=== PATIENT | female | born 1930 | race Caucasian/White ===

== ENCOUNTER 2017-07-14 06:40 | Inpatient (IN) | payer OTHER, MEDICARE ==
[2017-06-17 15:24] VITALS: BMI 31.0
--- NOTE | 2017-06-17 16:06 | PAT Medication Instructions ---
Service Date Jun 17, 2017. 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 Instructions For Your Scheduled Surgery - Hold the following medications the morning of surgery: Lisinopril/Hctz (Zestoretic 20MG/12.5MG), 1 TAB PO QAM - Take the following medications the morning of surgery with a sip of water: Aspirin (Aspirin Ec), 81 MG PO QAM Gabapentin (Neurontin), 300 MG PO BID Tramadol (Ultram), 50 MG PO Q6H PRN (if needed, can be taken up to four hours before surgery) - Take the following medications as scheduled the night before surgery: Gabapentin (Neurontin), 300 MG PO BID Lorazepam (Ativan), 1 MG PO QPM Tramadol (Ultram), 50 MG PO Q6H PRN (if needed) If you have any questions please call us at [phone] or [phone] or [phone]
--- NOTE | 2017-06-17 16:39 | DIAGNOSTIC IMAGING REPORT ---
CHEST 2 VIEWS ROUTINE CLINICAL HISTORY: Preoperative chest COMPARISON STUDY: No previous studies for comparison. FINDINGS: The cardiac and mediastinal contours are normal. There is no evidence of focal pulmonary consolidation. There is no evidence of failure. No pleural effusions are visualized.[ There are minor left basilar atelectatic changes IMPRESSION: No active disease in the chest. Electronically signed by: Durga Guidry M.D. 06/17/2017 4:38 PM Dictated Date/Time: 06/17/2017 4:38 PM
[2017-06-17 16:49] LABS: PTT PATIENT 24.3 SECONDS (21.0-31.0)
[2017-06-18 06:41] LABS: HEMOGLOBIN A1C 6.1 % (4.5-5.6)
--- NOTE | 2017-07-02 14:55 | HISTORY & PHYSICAL EXAMINATION ---
DATE OF ADMISSION: 07/14/2017 CHIEF COMPLAINT: Right knee pain. HISTORY OF PRESENT ILLNESS: This is an 86-year-old female with a multiple year history of right knee pain. The patient rates her pain at 8/10. She has pain with her daily activities. She has limited standing and walking tolerance. Pain is worse with weightbearing. The patient has had injections, home exercise program, anti-inflammatories and tramadol through the years without relief. She has failed conservative treatment and is scheduled for a right knee replacement. PAST MEDICAL HISTORY: Heart disease, diabetes and DVT. PAST SURGICAL HISTORY: Bladder tack, cholecystectomy and hysterectomy. SOCIAL HISTORY: The patient denies alcohol or tobacco use. She lives in a single story home. She lives with her son and granddaughter. She is retired. FAMILY HISTORY: Negative for DVT. MEDICATIONS: Lisinopril 20 mg daily, aspirin 81 mg daily, lorazepam 1 mg 3 times daily, Voltaren gel p.r.n., Prilosec 20 mg p.r.n., and gabapentin 1 capsule t.i.d. ALLERGIES: None. REVIEW OF SYSTEMS: See HPI. Ten other systems reviewed, all negative. PHYSICAL EXAMINATION: VITAL SIGNS: Height 5 feet 6 inches, weight 188 pounds, and BMI 30. GENERAL: This is a well-developed and well-nourished female, who is alert and oriented x3. Mood and affect are appropriate. HEENT: Normocephalic and atraumatic. Mucous membranes are moist and intact. NECK: Supple without lymphadenopathy. HEART: Regular rate and rhythm. She has a grade 1 systolic murmur. LUNGS: Clear to auscultation without wheezes or rhonchi. ABDOMEN: Soft and nontender. Bowel sounds are equal and active. EXTREMITIES: No ecchymosis, redness or warmth. She has valgus deformity. Range of motion is from 3-95 degrees with no laxity. She has moderate effusion. She has no edema. She is neurovascularly intact with +5/5 strength. X-RAY EXAMINATION: AP and lateral views show joint space narrowing and osteophyte formation. IMPRESSION: Degenerative joint disease, right knee. PLAN: The patient will be admitted for a right total knee arthroplasty. We will plan on aspirin 325 mg for DVT prophylaxis. The patient is going to do [facility] for home physical therapy. PCP is Dr. Zamora in [place].
[2017-07-14] VITALS (7 sets, daily range): BP systolic 87–140; BP diastolic 50–75; PULSE 58–76; TEMP 36.3–36.8; O2SAT 92–98; Ht 165.1 cm; Wt 85.8 kg
[~2017-07-14] VITALS: Ht 165.1 cm; Wt 85.8 kg
[~2017-07-14 06:40] MED LIST: ACETAMINOPHEN 500 MG TAB PO SCH; ASPI81TA28 PO; ATROPINE SULFATE 0.1 MG/ML 5ML SYR IV PRN; ATV/1 PO; BUPIVACAINE 0.25% 30 ML VIAL ONE; BUPIVACAINE 0.5 % 5 MG/1 ML PF 10ML VIAL ONE; CEFAZOLIN 2000MG IV PUSH 15 ML IV SCH; CeleBREX 200 MG CAP PO SCH; DEXAMETHASONE 4 MG TAB PO SCH; EpHEDrine SULFATE INJ 50 MG/ML AMP IV PRN; FAMOTIDINE 20 MG TAB PO SCH; FENTANYL CITRATE INJ 50 MCG/1 ML 2 ML VIAL IV PRN; GABA-113 PO; GABAPENTIN 300 MG CAP PO SCH; HYDROmorphone INJ 1 MG/ML SYR IV PRN; LACTATED RINGER'S 1000ML 1,000 ML IV SCH; LACTATED RINGER'S 1000ML 500 ML IV SCH; LISI-787 PO; METOCLOPRAMIDE HCL 10 MG TAB PO SCH; ONDANSETRON INJ 2 MG/ML 2 ML VIAL IV PRN; PHENYLEPHRINE 100MCG/ML 5ML SYR IV PRN; ROPIVACAINE 5MG/ML 30 ML 150 MG, BUPIVACAINE 0.5% MPF INJ 30 ML, EpINEphrine HCL INJ 0.... INFIL SCH; TRAM-10 PO
[2017-07-14] MEDS ORDERED: MIDAZOLAM HCL 1 MG/ML 2ML VIAL ONE (07:12)
--- NOTE | 2017-07-14 07:12 | History & Physical Bridge Note ---
H&P Re-Evaluation Bridge Note: I have examined the patient, reviewed the History & Physical and in the interval since the performance of the History & Physical I have noted the following changes of clinical significance: No changes noted
[2017-07-14] MEDS ORDERED: BACITRACIN 50000 UNIT VIAL ONE (07:33)
[2017-07-14] MEDS ORDERED: POVIDONE-IODINE OP SOLN 30 ML BTL ONE (07:33)
[2017-07-14] MEDS ORDERED: ORTHO JOINT ANESTHETIC ONE (07:33)
[2017-07-14] MEDS ORDERED: FENTANYL CITRATE INJ 50 MCG/1 ML 2 ML VIAL ONE (08:12)
[2017-07-14] MEDS ORDERED: LIDOCAINE HCL 2% 2 ML VIAL (20MG/ML) ONE (08:12)
[2017-07-14] MEDS ORDERED: PROPOFOL IV EMULSION 10 MG/ML 20 ML VIAL IV ONE (08:12)
[2017-07-14] MEDS ORDERED: DEXAMETHASONE SOD INJ 4 MG/ML VIAL ONE (08:12)
[2017-07-14] MEDS ORDERED: ONDANSETRON INJ 2 MG/ML 2 ML VIAL ONE (08:12)
[2017-07-14] MEDS: TRANEXAMIC ACID INJ 1,000 MG x 2 Bags IV SCH ×4 (08:15→12:42)
[2017-07-14] MEDS ORDERED: ETOMIDATE 2 MG/ML 20 ML VIAL IV ONE (09:14)
[2017-07-14] MEDS ORDERED: ROCURONIUM BROMIDE 10 MG/ML 5 ML VIAL IV ONE (09:14)
[2017-07-14] MEDS ORDERED: LARYING-O-JET KIT (LTA) ONE (09:15)
[2017-07-14] MEDS ORDERED: PHENYLEPHRINE 100MCG/ML 5ML SYR ONE (09:15)
[2017-07-14] MEDS ORDERED: GLYCOPYRROLATE INJ 0.2 MG/ML VIAL ONE (09:15)
[2017-07-14] MEDS ORDERED: NEOSTIGMINE METHYLSULFATE 5 MG/5 ML SYR ONE (09:15)
--- NOTE | 2017-07-14 10:43 | [facility] Post Operative Brief Note ---
Immediate Operative Summary Operative Date Jul 14, 2017. Pre-Operative Diagnosis Right knee djd Post-Operative Diagnosis Right knee DJD Procedure(s) Performed Right TKA Surgeon Dr. Smith Applied Exercise Physiologist Surgeon(s) Manny Garcia PA-C Estimated Blood Loss 25 Findings Consistent with Post-Op Diagnosis Fluids (cc crystalloids) 1200 Specimens none Drains None Anesthesia Type MAC Spinal Regional Complication(s) none Disposition Disposition: Recovery Room / PACU
[2017-07-14] MEDS ORDERED: MoRPHine SULFATE 4 MG/ML 1 ML CARP\\VIAL IV PRN (11:00)
[2017-07-14] MEDS ORDERED: ONDANSETRON INJ 2 MG/ML 2 ML VIAL IV PRN (11:00)
--- NOTE | 2017-07-14 11:56 | Anesthesiology Progress Note ---
Anesthesia Post Op Note Date & Time Jul 14, 2017 at 11:56 Vital Signs Pain Intensity: 3 Vital Signs Past 12 Hours Date Time Temp Pulse Resp B/P (MAP) Pulse Ox O2 Delivery O2 Flow Rate FiO2 07/14/17 11:45 66 16 116/61 97 Room Air 07/14/17 11:35 89 14 131/68 99 Oxymask 10 07/14/17 11:25 74 14 136/64 99 Oxymask 10 07/14/17 11:18 36.1 89 14 134/73 97 Oxymask 10 07/14/17 07:10 76 20 140/71 95 Room Air Notes Mental Status: alert / awake / arousable, participated in evaluation Pt Amnestic to Procedure: Yes Nausea / Vomiting: adequately controlled Pain: adequately controlled Airway Patency, RR, SpO2: stable & adequate BP & HR: stable & adequate Hydration State: stable & adequate Anesthetic Complications: no major complications apparent
--- NOTE | 2017-07-14 11:58 | DIAGNOSTIC IMAGING REPORT ---
R KNEE 1 OR 2 VIEWS ROUTINE CLINICAL HISTORY: 86 years-old Female presenting with AP/LATERAL IN PACU RIGHT KNEE. TECHNIQUE: Frontal and lateral views of the right knee were obtained. COMPARISON: None. FINDINGS: Postsurgical changes of total right knee arthroplasty with patellar resurfacing. Minimal lucency at the distal stem of the tibial plateau component, which measures less than 2 mm. No other periprosthetic lucency. No periprosthetic fracture. No malalignment. Expected intra-articular and subcutaneous emphysema. IMPRESSION: Expected postsurgical changes status post total right knee arthroplasty with patellar resurfacing. Lucency at the stem of the tibial component is likely within the range of acceptable. Electronically signed by: Joseph Bo M.D. 07/14/2017 11:57 AM Dictated Date/Time: 07/14/2017 11:55 AM
[2017-07-14] MEDS ORDERED: OXYCODONE HCL IR 5 MG TAB (IMMEDIATE RELEASE) ONE (12:22)
[2017-07-14] MEDS: SODIUM CHLORIDE 0.9% 1000ML 1,000 ML IV SCH ×2 (12:42→22:22)
[2017-07-14] MEDS: GABAPENTIN 300 MG CAP PO SCH ×2 (13:00→20:39)
[2017-07-14] MEDS: LISINOPRIL/HCTZ 20/12.5MG TAB PO SCH (13:00)
[2017-07-14] MEDS: KETOROLAC TROMETHAMINE 15 MG/ML VIAL IV. SCH ×2 (13:13→19:57)
[2017-07-14] MEDS: ACETAMINOPHEN 500 MG TAB PO SCH ×2 (15:27→22:23)
--- NOTE | 2017-07-14 15:51 | [facility] Operative Report ---
Operative Report Operative Date Jul 14, 2017. Pre-Operative Diagnosis Right knee djd Post-Operative Diagnosis Right knee DJD Procedure(s) Performed Right TKA Surgeon Dr. Smith Tack Puller Machine Surgeon(s) Manny Garcia PA-C Estimated Blood Loss 25 Findings See dictated op note Fluids 1200 Specimens none Drains None Anesthesia Type MAC Spinal Regional Complication(s) none Disposition Recovery Room / PACU Indications A 86-year-old male presents with long history of right knee severe tricompartmental DJD which is failed outpatient conservative treatments including NSAIDs, bracing, cortisone injections home walking/exercise program. His symptoms have progressed to the point where it has been difficult for him to perform normal activities of daily living. I have indicated the patient for a right total knee arthroplasty, the risks and benefits and complications of the procedure include but are not limited to infection bleeding damage to bone nerves vessels surrounding soft tissue, blood clots loss of function leg length discrepancy dislocation failure of the components need for additional surgery and . The patient wished to proceed with surgery at this time and informed consent was obtained. Appropriate clearances were obtained. Description of Procedure Following induction of spinal anesthesia, a tourniquet was applied to the proximal aspect of the thigh and the patient's right leg was prepped and draped in the usual sterile manner. A timeout was performed and site asia verified. Limb was exsanguinated with an esmarch bandage and tourniquet was inflated to 300 mmHg. A longitudinal midline incision was made over the anterior knee. Subcutaneous tissue was sharply dissected down to fascia. Electrocautery was used for hemostasis. Next a parapatellar arthrotomy was performed. Patella was everted and the knee was flexed. A randall retractor was used to expose the synovium above on the anterior aspect of the femur and removed down to bone. Next, the anterior fat pad was removed to aid in visualization. The medial face of the tibia was cleared of soft tissue first with a bovie and a beebe elevator. This tissue was retracted posteriorly using a blunt hohmann. Next the extramedullary tibial cutting guide was placed to the anterior aspect of the tibia. The tibial resection level was set taking 2mm from the defective tibial condyle. The medial and lateral collateral ligament were protected with that homans. The tibia guide was removed and proximal tibial bone fragment removed utilizing straight osteotome, electrocautery and lenora. Next, the distal femur intramedullary canal was accessed utilizing the step drill. The intramedullary distal femur cutting guide was placed into the canal and pinned into place. The distal femur was cut on the 5 setting. Next the cutting guide was removed and the femur was sized. Care was taken to ensure appropriate store standards associate all rotation and 5 degree holes were drilled. A size 8 4-in- 1 cutting block was placed on the distal end of the femur and secured into place with two short headed screws. Two bent homans were placed to protect the medial and lateral collateral ligaments. The oscillating saw was used to cut anterior, posterior, anterior chamfer and posterior chamfer. The four and one cutting block was removed and bone fragments excised. Laminar industrial machine system technician was placed laterally and the ACL and PCL were removed followed by the medial meniscus and posterior medial osteophytes. Aquamantys was utilized for any posterior medial bleeders and Orthomix injected into the posterior medial capsule. A laminar industrial machine system technician was then placed in the medial compartment and the lateral meniscus and posterior osteophytes were removed. Aquamantys was utilized for any posterior lateral bleeders and Orthomix injected into the posterior lateral capsule. Next, drop jillian and spacer block were placed with the leg in flexion and extension to assess alignment and flexion/extension gaps. Next the proximal tibia was assessed and two bent Homans were placed medial and lateral to aid in visualization. The appropriate tibia size and rotation was selected and a size E tibial plate was pinned into place with appropriate rotation. Preparation of the tibia was completed utilizing the matching tibial drill and broach. I then turned my attention back to the distal femur in a trial femoral component was impacted into place. Appropriate femoral width was assessed and selected. Next the femur PS box cut guide was placed and cut made with the reciprocal saw and the PS box provisional placed. A trial size 12 tibia articular tray was placed and varus-valgus balance assessed in 0 degrees of extension and 30, 60 and 90 degrees of flexion. A final tibial articular surface size 12 was chosen. Assess was gained to the patella and caliper utilized to measure width. The patella reamer was utilized and remaining bone removed with oscillating saw. A size 32 patella button was selected and the patella pegs drilled. Trial patella button was placed and tracking was assessed. The knee was found to be well balanced, well aligned with excellent patella tracking. The trials were removed and final components were obtained and assembled. The knee was irrigated copiously with sterile saline solution mixed with bacitracin. Access to the proximal tibia was once again obtained utilizing to the homans and the proximal tibia and distal femur were dried with lap sponges. The final components were cemented into place and all excess cement was removed. A trial tibial articular surface was placed while cemented hardened. Knee stability was once again assessed and the final component inserted. The knee was injected with the remaining Orthomix solution and irrigated once more with sterile saline solution mixed with bacitracin. The capsulotomy was closed with #1 Vicryl followed by subcutaneous closure with 2-0 Vicryl suture and a 3- 0 V-lock suture. Skin closure was performed using Prineo dressing followed by Juan, 4 x 4s and lisa wrap. The patient tolerated the procedure well and was taken to the PACU in stable condition. Due to the complex nature of the procedure, the entire surgery was performed with the operational assistance of Manny Portillo PA-C. The behavioral health assistant, under direct supervision, was involved in the actual performance of all aspects of the surgical procedure including hemostasis, tissue retraction and incision, instrument management, patient positioning, and wound closure. I attest to the content of the Intraoperative Record and any orders documented therein. Any exceptions are noted below. I attest to the content of the Intraoperative Record and any orders documented therein. Any exceptions are noted below.
[2017-07-14] MEDS: CEFAZOLIN IV 2,000 MG in SYRINGE 0 ML IV SCH (17:48)
--- NOTE | 2017-07-14 18:56 | Orthopedic Progress Note ---
Orthopedic Progress Note Date of Service Jul 14, 2017. Subjective Additional Notes: Post-operative progress note Patient seen laying in bed, comfortable, pain well controlled, no acute issues. Objective NAD, AOx3 PE RLE: NVSI +EHL/FHL/TA/GS SILT grossly, CR< 2 seconds, + 2 DP pulse, compartment soft NT, dressing CDI Date Time Temp Pulse Resp B/P (MAP) Pulse Ox O2 Delivery O2 Flow Rate FiO2 07/14/17 15:16 36.3 58 16 99/60 (73) 95 Nasal Cannula 2.0 07/14/17 14:15 36.4 60 15 97/55 (69) 96 2.0 96/55 (69) 07/14/17 12:39 64 16 127/63 (84) 98 Nasal Cannula 2.0 07/14/17 12:15 36.8 69 18 125/75 (92) 92 Nasal Cannula 2.0 07/14/17 12:15 92 Nasal Cannula 2.0 07/14/17 12:15 92 Nasal Cannula 2.0 07/14/17 11:55 36.4 66 18 124/64 95 Nasal Cannula 2 07/14/17 11:45 66 16 116/61 97 Room Air 07/14/17 11:35 89 14 131/68 99 Oxymask 10 07/14/17 11:25 74 14 136/64 99 Oxymask 10 07/14/17 11:18 36.1 89 14 134/73 97 Oxymask 10 07/14/17 07:10 76 20 140/71 95 Room Air Assessment & Plan Assessment: s/p R TKA Plan: -ancef x 24 -DVT ppx: ASA BID -Pain controlled -WBAT RLE -PT/OT -AM labs -PO XR: well aligned well fixed total knee prosthesis without fracture or dislocation. -DC planning, home with HH
[2017-07-14] MEDS: LORAZEPAM 1 MG TAB PO SCH (20:39)
[2017-07-14] MEDS: ASPIRIN 325 MG ECTAB PO SCH (20:39)
[2017-07-14] MEDS: OXYCODONE HCL 10 MG TABCR (OXYCONTIN) PO SCH (20:39)
[2017-07-14] MEDS: DOCUSATE SODIUM 100 MG CAP PO SCH (20:39)
[2017-07-14] MEDS: SENNA 8.6 MG TAB PO SCH (20:39)
[2017-07-15] VITALS (10 sets, daily range): BP systolic 90–112; BP diastolic 50–68; PULSE 58–63; TEMP 36.4–36.7; O2SAT 93–98
[2017-07-15] MEDS: KETOROLAC TROMETHAMINE 15 MG/ML VIAL IV. SCH ×2 (00:10→05:44)
[2017-07-15] MEDS: CEFAZOLIN IV 2,000 MG in SYRINGE 0 ML IV SCH (00:11)
[2017-07-15] MEDS: ACETAMINOPHEN 500 MG TAB PO SCH ×3 (05:41→22:28)
[2017-07-15 07:41] LABS: CALCIUM 7.8 mg/dl (8.5-10.1); CREATININE 1.12 mg/dl (0.60-1.20); POTASSIUM 4.4 mmol/L (3.5-5.1)
--- NOTE | 2017-07-15 07:44 | Discharge Instructions ---
Discharge Instructions Date of Service Jul 15, 2017. Admission Reason for Admission: Right Knee Osteoarthritis Discharge Discharge Diagnosis / Problem: SP RIGHT TKA Discharge Goals Goal(s): Decrease discomfort, Improve function, Increase independence Activity Recommendations Activity Limitations: per Instructions/Follow-up section . Instructions / Follow-Up Instructions / Follow-Up ACTIVITY RECOMMENDATIONS: SELF CARE INSTRUCTIONS AFTER TOTAL KNEE REPLACEMENT A. You may need to continue a physical therapy program after discharge from the hospital. There are several options available to you. Your doctor will assist you in selecting the best one for you. 1. An out-patient facility 2 to 3 times a week for therapy or home therapy. 2. Continue working on all exercises taught to you in the hospital. Your goals should be to increase bending of your knee to 90 degrees and beyond and to fully straighten your knee. B. You may progress at your own pace from walking with a walker or crutches to a cane; then to no assistive devices. C. Make walking a part of your daily routine. Be up as much as comfortable with rest periods throughout the day. Rest with leg elevation is very important. Use the ice wrap frequently for the first 3-4 weeks. D. There are no restrictions on activities. You may ride in a car, shop, participate in brazing machine tender and all social activities. E. Wear the long elastic stockings (KALEB hose) 20 hours a day for 2 weeks after surgery. They can be removed several times a day for laundering and for a bath. F. You may shower, no tub baths until cleared by your doctor. SPECIAL CARE INSTRUCTIONS: VERY IMPORTANT TO READ AND REVIEW A. There are a few signs you need to watch for after you are home. Call [facility] [place] if you notice any of the followin. Increased severe knee pain. Some pain is expected especially when you exercise. 2. Increased swelling in your leg or knee; pain or swelling of the calf muscle in either lower leg. 3. Any fluid drainage from the incision. 4. Shortness of breath or chest pain. B. Please call [facility] at if you have any concerns or questions about your operation or recovery. The doctor or his nurse will return your call promptly. C. You must take antibiotics before dental work, bladder, bowel or other surgery. Your doctor will provide you with a permanent care to carry describing this precaution. IMPORTANT: * REMEMBER TO TAKE ASPIRIN, 325 MG, TWICE DAILY FOR 4 WEEKS UNLESS OTHERWISE DIRECTED. THIS IS YOUR BLOOD THINNER. * HIGH RISK PATIENTS MAY BE PRESCRIBED A STRONGER BLOOD THINNER. THIS WILL BE PROVIDED AT DISCHARGE. * CALL IF INCREASED PAIN, REDNESS, DRAINAGE OR FEVER GREATER THAT 101. * WEAR KALEB HOSE 20 HOURS PER DAY FOR 2 WEEKS. * DERMABOND Prineo- This is a mesh tape dressing that is covered with glue. It should remain in place until the incision is properly healed, usually 10-14 days. This dressing is designed to naturally slough off. You may trim the excess mesh tape as it peels off. Incision may be briefly wet in a shower. Dry immediately by blotting with a clean, dry towel. Do not bath or swim until instructed by your doctor. Do not scratch, rub, or pick at the dressing. Do not apply any topical ointments or lotions until dressing is completely removed and/or instructed by your doctor. There may be a small piece of suture material at one end of your incision. Do not pull or trim this. If it is bothersome or catching on clothing, you may cover it with a band-aid. FOLLOW UP VISIT: If appointment is not already scheduled: Please call [facility] to make a follow-up appointment for 2 weeks after your surgery at . Current Hospital Diet Patient's current hospital diet: Regular Diet Discharge Diet Recommended Diet: Regular Diet Procedures Procedures Performed: Right TKA Pending Studies Studies pending at discharge: no Laboratory Results Hemoglobin A1c Test 06/17/17 16:18 Range/Units Estimated Average Glucose 128 mg/dl Hemoglobin A1c 6.1 H 4.5-5.6 % Medical Emergencies . Who to Call and When: Medical Emergencies: If at any time you feel your situation is an emergency, please call 911 immediately. . Non-Emergent Contact Non-Emergency issues call your: Surgeon . "Provider Documentation" section prepared by Alida Condon. . [place] Drug Monitoring Program Search Results: patient reviewed within database, no issues identified
[2017-07-15 08:31] LABS: HEMATOCRIT 35.4 % (37-47); HEMOGLOBIN 11.5 g/dL (12.0-16.0); MEAN CELL VOLUME 84.9 fL (80-100); MEAN CORPUSCULAR HEMOGLOBIN 27.6 pg (25-34); MEAN CORPUSCULAR HGB CONC 32.5 g/dl (32-36); MEAN PLATELET VOLUME 12.1 fL (7.4-10.4); PLATELET COUNT 162 K/uL (130-400); RED CELL DISTRIBUTION WIDTH CV 13.3 % (11.5-14.5)
[2017-07-15] MEDS: SODIUM CHLORIDE 0.9% 1000ML 1,000 ML IV SCH (08:45)
[2017-07-15] MEDS: ASPIRIN 325 MG ECTAB PO SCH ×2 (09:04→21:00)
[2017-07-15] MEDS: MULTIVITAMIN TAB PO SCH (09:04)
[2017-07-15] MEDS: DOCUSATE SODIUM 100 MG CAP PO SCH ×2 (09:04→21:00)
[2017-07-15] MEDS: LISINOPRIL/HCTZ 20/12.5MG TAB PO SCH (09:04)
[2017-07-15] MEDS: OXYCODONE HCL IR 5 MG TAB (IMMEDIATE RELEASE) PO PRN ×3 (09:17→20:55)
[2017-07-15] MEDS: OXYCODONE HCL 10 MG TABCR (OXYCONTIN) PO SCH (09:17)
--- NOTE | 2017-07-15 10:14 | Orthopedic Progress Note ---
Orthopedic Progress Note Date of Service Jul 15, 2017. Subjective Additional Notes: Patient seen at bedside, comfortable, pain well controlled, c/o decreased sensation to the planter aspect of her right foot. No acute issues overnight. Objective NAD, AOx3 PE RLE: NVSI +EHL/FHL/TA/GS, decreased sensation to planter foot, 5/5 motor strength, CR< 2 seconds, + 2 DP pulse, compartment soft NT, dressing CDI Date Time Temp Pulse Resp B/P (MAP) Pulse Ox O2 Delivery O2 Flow Rate FiO2 07/15/17 09:13 105/65 (78) 07/15/17 08:48 93 Room Air 07/15/17 08:00 36.4 59 20 90/50 (63) 93 Room Air 07/15/17 07:25 Room Air 07/15/17 02:42 36.4 58 16 96/55 (69) 96 Room Air 07/15/17 00:30 99/59 (72) 07/15/17 00:00 Room Air 07/14/17 22:59 36.7 62 15 87/50 (62) 93 Room Air 07/14/17 18:57 36.5 59 17 92/57 (69) 98 Room Air 07/14/17 15:16 36.3 58 16 99/60 (73) 95 Nasal Cannula 2.0 07/14/17 14:15 36.4 60 15 97/55 (69) 96 2.0 96/55 (69) 07/14/17 12:39 64 16 127/63 (84) 98 Nasal Cannula 2.0 07/14/17 12:15 36.8 69 18 125/75 (92) 92 Nasal Cannula 2.0 07/14/17 12:15 92 Nasal Cannula 2.0 07/14/17 12:15 92 Nasal Cannula 2.0 07/14/17 11:55 36.4 66 18 124/64 95 Nasal Cannula 2 07/14/17 11:45 66 16 116/61 97 Room Air 07/14/17 11:35 89 14 131/68 99 Oxymask 10 07/14/17 11:25 74 14 136/64 99 Oxymask 10 07/14/17 11:18 36.1 89 14 134/73 97 Oxymask 10 Laboratory Results 24 Hours: Test 07/15/17 06:18 07/15/17 08:19 Prothromb Time International Ratio 1.0 Prothrombin Time 10.1 SECONDS Hematocrit 35.4 % Hemoglobin 11.5 g/dL Assessment & Plan Assessment: s/p R TKA POD#1 Plan: -ancef x 24 -DVT ppx: ASA BID -Pain controlled -WBAT RLE -PT/OT -AM labs -PO XR: well aligned well fixed total knee prosthesis without fracture or dislocation. -DC planning, home with HH
[2017-07-15] MEDS: PANTOprazole SOD 40 MG TAB PO SCH (10:18)
[2017-07-15] MEDS: GABAPENTIN 300 MG CAP PO SCH ×2 (10:18→21:00)
[2017-07-15] MEDS: CeleBREX 200 MG CAP PO SCH (21:00)
[2017-07-15] MEDS: SENNA 8.6 MG TAB PO SCH (21:00)
[2017-07-15] MEDS: LORAZEPAM 1 MG TAB PO SCH (21:00)
[2017-07-16] MEDS: OXYCODONE HCL IR 5 MG TAB (IMMEDIATE RELEASE) PO PRN ×4 (01:24→14:23)
[2017-07-16] MEDS: ACETAMINOPHEN 500 MG TAB PO SCH ×2 (05:41→11:31)
[2017-07-16 07:39] VITALS: BP 113/70; PULSE 68; TEMP 36.5; O2SAT 94
--- NOTE | 2017-07-16 07:39 | Orthopedic Progress Note ---
Orthopedic Progress Note Date of Service Jul 16, 2017. Subjective Post OP Day: 2 Reports: complaints (HAD A ROUGH NIGHT WITH PAIN CONTROL. FEELING SLIGHTLY BETTER NOW.), Denies: chest pain, SOB, nausea / vomiting, light headedness, calf pain Objective calves soft nontender, N/V intact, capillary refill less than 2 sec., incision C /D/I, A&O x3, toes mobile Date Time Temp Pulse Resp B/P (MAP) Pulse Ox O2 Delivery O2 Flow Rate FiO2 07/15/17 23:29 36.7 63 16 104/64 (77) 93 Room Air 07/15/17 23:25 Room Air 07/15/17 15:40 97 Room Air 07/15/17 15:05 36.6 62 16 95/57 (70) 97 Room Air 07/15/17 11:57 36.7 58 14 112/68 (83) 96 Room Air 07/15/17 11:05 58 98 07/15/17 09:13 105/65 (78) 07/15/17 08:48 93 Room Air 07/15/17 08:00 36.4 59 20 90/50 (63) 93 Room Air Laboratory Results 24 Hours: Test 07/15/17 08:19 Hematocrit 35.4 % Hemoglobin 11.5 g/dL Assessment & Plan Assessment: s/p R TKA POD#2 Plan: -ancef x 24 -DVT ppx: ASA BID -Pain IS MOSTLY THIGH, LIKELY TOURNIQUET. WILL GIVE A ONE TIME DOSE OF TORADOL THIS AM. DC HOME IF PAIN CONTROLLED LATER. -WBAT RLE -PT/OT -AM labs -PO XR: well aligned well fixed total knee prosthesis without fracture or dislocation. -DC planning, home with HH.
[2017-07-16] MEDS ORDERED: ACET-24 PO (07:41)
[2017-07-16] MEDS ORDERED: ASPEC325 PO (07:41)
[2017-07-16] MEDS ORDERED: ONDA-170 PO (07:41)
[2017-07-16] MEDS ORDERED: RXC5 PO (07:41)
[2017-07-16] MEDS ORDERED: SENN-61 PO (07:41)
[2017-07-16] MEDS ORDERED: CLB200 PO (07:41)
[2017-07-16] MEDS ORDERED: KETOROLAC TROMETHAMINE 15 MG/ML VIAL IV. STA (08:23)
[2017-07-16] MEDS: GABAPENTIN 300 MG CAP PO SCH (08:29)
[2017-07-16] MEDS: ASPIRIN 325 MG ECTAB PO SCH (08:29)
[2017-07-16] MEDS: PANTOprazole SOD 40 MG TAB PO SCH (08:29)
[2017-07-16] MEDS: MULTIVITAMIN TAB PO SCH (08:29)
[2017-07-16] MEDS: CeleBREX 200 MG CAP PO SCH (08:30)
[2017-07-16] MEDS: LISINOPRIL/HCTZ 20/12.5MG TAB PO SCH (08:30)
[2017-07-16] MEDS: DOCUSATE SODIUM 100 MG CAP PO SCH (08:30)
[2017-07-16] MEDS ORDERED: OXYC-57 PO (11:08)
[2017-07-16 11:34] VITALS: BP 113/70; PULSE 68; TEMP 36.5; O2SAT 94
--- NOTE | 2017-07-16 15:25 | Anesthesiology Progress Note ---
Anesthesia Post Op Note Date & Time Jul 16, 2017 at 15:24 Vital Signs Pain Intensity: 5.0 Vital Signs Past 12 Hours Date Time Temp Pulse Resp B/P (MAP) Pulse Ox O2 Delivery O2 Flow Rate FiO2 07/16/17 11:34 36.5 68 16 94 Room Air 07/16/17 07:39 36.5 68 16 113/70 (84) 94 Room Air 07/16/17 07:10 Room Air Notes Mental Status: alert / awake / arousable, participated in evaluation Pt Amnestic to Procedure: Yes Nausea / Vomiting: adequately controlled Pain: adequately controlled Airway Patency, RR, SpO2: stable & adequate BP & HR: stable & adequate Hydration State: stable & adequate Anesthetic Complications: no major complications apparent This post-op visit was made on July 15, 2017 @ 07:30 AM
--- NOTE | 2017-07-19 18:56 | DISCHARGE SUMMARY ---
DISCHARGE DIAGNOSIS: Degenerative joint disease, right knee. SECONDARY DIAGNOSES: History of coronary artery disease, diabetes mellitus, and deep vein thrombosis in the past. CONSULTS: None. COMPLICATIONS: None. PROCEDURES: Right total knee arthroplasty performed by Dr. Smith on 07/14/2017. BRIEF HISTORY: As dictated in the history and physical. HOSPITAL SUMMARY: The patient was admitted on the above date and had the above known surgery performed, which she tolerated well. On the first postoperative day, she was seen at the bedside and was comfortable. Pain was controlled. She had some decreased sensation to the plantar aspect of her right foot. She had no other acute issues. She was in no acute distress, alert and oriented x3. She had some slight decreased sensation on the plantar portion of the foot. Motor strength was 5/5. Capillary refill is less than 2 seconds. Has +2 dorsalis pedis pulse. Calves are soft and nontender. Dressings are clean, dry, and intact. Vital signs are stable and she is afebrile. Hemoglobin is 11.5 and she was started on physical therapy protocol and continued on DVT prophylaxis and pain management. By her second postoperative day, she had had a rough night with pain control, but was feeling slightly better that morning. She had no other complaints. Calves were soft and nontender. Neurovascularly intact. Incision was clean, dry, and intact. Toes were mobile. Hemoglobin was 11.5. Vital signs are stable. She is afebrile. Her pain was mostly in the thigh and was likely due to tourniquet and plans were to give one time dose of Toradol that morning. She was continued on her PT protocol and continued on DVT prophylaxis and pain management. She was progressing well with her physical therapy. Pain control was apparently better and she was discharged to home on 07/16/2017. For further review, please see chart. LAB AND X-RAY DATA: As per chart. DISCHARGE INSTRUCTIONS: The patient was discharged to home in satisfactory condition on 07/16/2017 in stable condition. DIET: Regular. ACTIVITY: Follow TK instruction sheets and special care instructions as noted. Follow up with Dr. Smith in 2 weeks. The patient to call for appointment if one has not been made for you. DISCHARGE MEDICATIONS: Aspirin 325 mg p.o. b.i.d. for 30 days, Celebrex 200 mg p.o. b.i.d., Zofran 8 mg p.o. q. 8 hours p.r.n. nausea, Percocet 5/325 one to two tablets p.o. q. 4 hours p.r.n., senna 17.2 mg p.o. at bedtime. Resume home meds as listed and stop taking your initial dose of aspirin that was taken once daily. After 30 days, resume your once daily dosing.
== END 2017-07-16 14:54 | disposition home health service (06) | DRG 470 ==
LOC: C.ACU 06:40 → C.3E 07:05 → ENRESERV 11:42
PROVIDERS: ADMIT Orthopaedic Surgery; ATTEND Orthopaedic Surgery
PROC: 0SRC0J9 Replacement of Right Knee Joint with Synthetic Substitute, Cemented, Open Approach (ICD-10-PCS; principal; 2017-07-14 08:45)
DX: M17.11 Unilateral primary osteoarthritis, right knee (principal); I25.10 Atherosclerotic heart disease of native coronary artery without angina pectoris; E11.9 Type 2 diabetes mellitus without complications; Z86.718 Personal history of other venous thrombosis and embolism

== ENCOUNTER 2020-01-10 07:06 | Observation (INO) ==
--- NOTE | 2020-01-02 10:13 | Anesthesiology Consultation ---
Date of Service January 02, 2020 Assessment & Plan (1) Encounter for pre-operative examination: Chart Review Chart Review: Acceptable Risk for Surgery (pending preop Covid testing ) and Patient NOT seen in Pre Admission Testing Per nursing assessment 12/13/2019, patient resides in [facility]. Wears mask, uses good hand hygiene and socially distances. No known Covid positive contacts or Covid related symptoms. Pt will be following up with surgeon for preop Covid instructions. Seen by PCP 12/27/2019 = patient seen for preop evaluation. Patient had appointment with cardio previously and was cleared through them for the surgery. Labs okay. Urine had normal jose showing and patient is asymptomatic. No further cardiopulmonary testing needed. "Patient is cleared for surgery." Seen by cardio 12/27/2019 = patient seen for preop cardiac clearance. She is a well-preserved octogenarian and has good functional status despite severe left knee arthritis. Patient does have moderate to severe aortic stenosis but is asymptomatic; this is not a contraindication to surgery. " We should proceed with her surgery, excepting the cardiovascular risk involved; particular care needed to be taken to prevent significant hypotension, perioperatively... An ischemic evaluation is not merited." Follow-up in 6 months. Right TKA 07/14/17= Done under GA- grade 2 view with MAC #3. 1 attempt/atraumatic. Pt tolerated PNB well. No SAB due to . History Surgery Operation Date: 01/10/20 11:15 Proposed Procedures p Left Total Knee Arthroplasty - Jh Smith DO Height/Weight Height: 5 ft 4 in Weight: 83.915 kg Allergies Allergy/AdvReac Type Severity Reaction Status Date / Time No Known Allergies Allergy Verified 12/13/19 09:53 Medications Home Medications Medication Instructions Recorded Confirmed Last Taken lisinopril-hydrochlorothiazide 1 tab PO QAM 10/10/19 12/13/19 Unknown lorazepam 1 mg PO QPM 10/10/19 12/13/19 Unknown meloxicam 7.5 mg PO BID PRN 10/10/19 12/13/19 Unknown Medical Marijuana 1 dose SUBLINGUAL UD PRN 10/20/19 12/13/19 Unknown Cbd Oil 1 dose TOPICAL DAILY 12/13/19 12/13/19 Unknown gabapentin 400 mg PO QID 12/13/19 12/13/19 Unknown multivitamin 1 tab PO QAM 12/13/19 12/13/19 Unknown Past Medical History Medical History (Updated 01/02/20 @ 10:07 by Gay Amador PA-C) Aortic stenosis Moderate to severe per October 2019 ECHO 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 Hypertension Irregular heart beat F/U DR RIDLEY THONY (obstructive sleep apnea) Mild- no device needed per patient Past Surgical History Surgical History History of cholecystectomy History of colonoscopy History of hysterectomy AND ONE OVARY History of total knee replacement RIGHT Status post surgical removal and fulguration of bladder neoplasm 2008-AND CHEMOTHERAPY Social History Smoking Status: Former smoker Do You Dip or Chew Tobacco: No Smoking End Date: QUIT 35 YRS AGO Hx Alcohol Use: No Alcohol type: beer, wine and hard liquor alcohol intake frequency: a few times a month Hx Substance Use: Yes (SEE BELOW) substance use type: marijuana and other Substance Use Type Other:: MEDICAL MARIJUANA CARD-SUBLINGUAL PRN/CBD OIL T OPICALLY Testing Laboratory Results 12/15/19= WBC: 6.48 H/H: 13.0/41.6 PLATELETS: 173 SODIUM: 137 POTASSIUM: 4.9 CHLORIDE: 104 CO2: 29.1 BUN: 30.7 CREATININE: 1.08 GLUCOSE: 81 HGB A1C: 6.0 PT: 11.2 PTT: 32.0 INR: 0.97 UA: Large leukocyte esterase URINE CULTURE: Mixed jose (multiple species present) Electrocardiogram Date: 12/27/19 Sinus rhythm with a solitary PAC at 91 bpm. Chest X-Ray Date: 10/19/19 Findings: + NAD Echocardiogram EF: 55% LV Function: normal Heavily calcified aortic valve with moderate to severe stenosis (VLADIMIR =0.9 cm; MG 33 mmHg; peak velocity 3.3 m/s). Mild AR. Stress Test Date: 01/06/19 Type: nuclear Findings: + WNL There is no EKG criteria for myocardial ischemia. Myocardial perfusion imaging is normal. No myocardial ischemia or infarction is present. EF =62%. Wall motion is normal.
--- NOTE | 2020-01-09 09:06 | History & Physical Report ---
Date of Service January 10, 2020 Assessment & Plan (1) Degenerative joint disease of left knee: I have indicated the patient for left total knee replacement. The risks, benefits and complications of surgery were explained to the patient which include but not limited to infection, acute blood loss, DVT/PE, injury to nerves, vessels, bone, soft tissue, arthrofibrosis, chronic pain, failure of the prosthesis, knee dislocation, leg length discrepancy, need for additional surgery, cardiac and pulmonary events and . The patient wished to proceed with surgery and informed consent was obtained at this time. We will plan for ASA BID post-operatively for DVT prophylaxis. Upon discharge the patient will be discharged home with home health services. Appropriate clearances by PCP, cardiology were obtained. Patient asymptomatic for UTI. History of Present Illness Chief Complaint: Left knee pain/DJD Primary Care Provider: Florinda Zamora The patient is a 89 year old female who presents with complaints of severe left knee pain and DJD. The patient has failed outpatient conservative treatments to this point which included NSAIDS, IA corticosteroid injection and a home exercise/walking program. The patient's pain and limited function have progressed to the point where they severely hinder their activities of daily living and they no longer tolerate exercise programs. They are requesting to proceed with total knee replacement surgery. Allergies Allergy/AdvReac Type Severity Reaction Status Date / Time No Known Allergies Allergy Verified 01/10/20 07:46 Home Medications Home Medications Medication Instructions Recorded Confirmed Type lisinopril-hydrochlorothiazide 1 tab PO QAM 10/10/19 01/10/20 History lorazepam 1 mg PO QPM 10/10/19 01/10/20 History meloxicam 7.5 mg PO BID PRN 10/10/19 01/10/20 History Medical Marijuana 1 dose SUBLINGUAL UD PRN 10/20/19 01/10/20 History Cbd Oil 1 dose TOPICAL DAILY 12/13/19 01/10/20 History gabapentin 400 mg PO QID 12/13/19 01/10/20 History multivitamin 1 tab PO QAM 12/13/19 01/10/20 History Past Med/Surg History Medical History Aortic stenosis Moderate to severe per October 2019 ECHO 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 Hypertension Irregular heart beat F/U DR RIDLEY THONY (obstructive sleep apnea) Mild- no device needed per patient Surgical History History of cholecystectomy History of colonoscopy History of hysterectomy AND ONE OVARY History of total knee replacement RIGHT Status post surgical removal and fulguration of bladder neoplasm 2008-AND CHEMOTHERAPY Social History Smoking Status: Former smoker Smoking End Date: QUIT 35 YRS AGO; Second Hand Exposure: No; Do You Dip or Chew Tobacco: No; Hx Alcohol Use: No Hx Substance Use: Yes (SEE BELOW) Substance Use Type Other:: MEDICAL MARIJUANA CARD-SUBLINGUAL PRN/CBD OIL TOPICALLY Preferred Language: Albanian Communication Ability: Effective Radar Mechanic Required: No Beliefs That Will Affect Care: None Current Living Situation: Family Current Living Situation Comment: LIVES WITH SON AND GRANDDAUGHTER Other Information That Helps Us Care for You: No Feels Safe at Home: Yes Safety Concerns: Feels Safe At This Time Assistive Devices: Glasses and Hearing Aid - Bilateral Review of Systems Review of Systems: All systems reviewed & are unremarkable except as noted in HPI & below Constitutional: as per Subjective / HPI Physical Exam Physical Exam: LLE NVSI +EHL/FHL/TA/GS SILT grossly, +2 DP pulse, compartments soft NT, limited painful ROM of the knee 0-115 degrees flexion, +creptius. Constitutional: WD/WN, vitals as above Eyes: PERRL, conjunctivae normal, anicteric sclerae ENMT: external ear and nose normal, oropharynx normal Neck: trachea midline, no thyromegaly Respiratory: normal respiratory effort, lungs clear to auscultation Cardiovascular: RRR, no murmur, no edema Gastrointestinal (Abdomen): normal bowel sounds, soft, nontender, no hep atosplenomegaly Musculoskeletal: no cyanosis or clubbing, extremities motor strength 5/5 Skin: no rashes, warm and dry Neurologic: patellar DTR's 2+ bilat, sensation intact Psychiatric: A+Ox3, euthymic affect Lymphatic: no cervical or axillary lymphadenopathy Results & Data Results & Data ([facility]) Diagnostic Findings Multiple views of the knee demonstrates severe tricompartmental DJD with complete loss of the medial and patellofemoral joint space. +osteophytes, +sclerosis, +subchondral cysts.
[~2020-01-10 07:06] MED LIST changes: -ASPI81TA28 PO; -ATROPINE SULFATE 0.1 MG/ML 5ML SYR IV PRN; -ATV/1 PO; -BUPIVACAINE 0.25% 30 ML VIAL ONE; +CEFAZOLIN 2000MG 2,000 MG/15 ML SYR IV SCH; -CEFAZOLIN 2000MG IV PUSH 15 ML IV SCH; -DEXAMETHASONE 4 MG TAB PO SCH; -EpHEDrine SULFATE INJ 50 MG/ML AMP IV PRN; -FENTANYL CITRATE INJ 50 MCG/1 ML 2 ML VIAL IV PRN; -GABA-113 PO; -HYDROmorphone INJ 1 MG/ML SYR IV PRN; -LACTATED RINGER'S 1000ML 1,000 ML IV SCH; -LACTATED RINGER'S 1000ML 500 ML IV SCH; -LISI-787 PO; +LR 500ML BOLUS, THEN 15ML/HR IV SCH; -METOCLOPRAMIDE HCL 10 MG TAB PO SCH; +METOCLOPRAMIDE HCL 10 MG TABLET PO SCH; -ONDANSETRON INJ 2 MG/ML 2 ML VIAL IV PRN; -PHENYLEPHRINE 100MCG/ML 5ML SYR IV PRN; +ROPIVACAINE 0.5% 5 MG/ML 30 ML VIAL ONE; +ROPIVACAINE 0.5% HCL/PF 150 MG, BUPIVACAINE 0.5% MPF 30 ML, EPINEPHrine 30MG/30ML (OR U... INSTIL SCH; -ROPIVACAINE 5MG/ML 30 ML 150 MG, BUPIVACAINE 0.5% MPF INJ 30 ML, EpINEphrine HCL INJ 0.... INFIL SCH; -TRAM-10 PO; +TRANEXAMIC ACID 1,000 MG **IV Intra-op IV SCH; +TRANEXAMIC ACID 1,000 MG **IV Pre-op IV SCH; +dexAMETHasone 4 MG TAB PO SCH
[2020-01-10] MEDS ORDERED: PROPOFOL IV EMULSION 10 MG/ML 20 ML VIAL IV ONE (09:16)
[2020-01-10] MEDS ORDERED: LIDOCAINE HCL 2% 2 ML VIAL/AMP(20MG/ML) INFIL ONE (09:16)
[2020-01-10] MEDS ORDERED: fentaNYL citrate 100 MCG/2 ML VIAL ONE ×2 (09:16→10:56)
[2020-01-10] MEDS ORDERED: ATROPINE SULFATE 0.1 MG/ML 10ML SYR IV PRN (09:24)
[2020-01-10] MEDS ORDERED: ONDANSETRON INJ 2 MG/ML 2 ML VIAL IV PRN ×2 (09:24→14:31)
[2020-01-10] MEDS ORDERED: KETOROLAC TROMETHAMINE 15 MG/ML VIAL IV PRN (09:32)
--- NOTE | 2020-01-10 09:32 | History & Physical Bridge Note ---
Date of Service January 10, 2020 History & Physical Bridge Note I have examined the patient, reviewed the History & Physical and in the interval since the performance of the History & Physical I have noted the following changes of clinical significance: no changes noted
[2020-01-10] MEDS ORDERED: MIDAZOLAM HCL 1 MG/ML 2ML VIAL ONE (09:36)
[2020-01-10] MEDS ORDERED: ORTHO JOINT ANESTHETIC ONE (09:50)
[2020-01-10] MEDS ORDERED: BACITRACIN INJ 50,000 UNIT VIAL ONE (09:50)
[2020-01-10] MEDS ORDERED: KETAMINE HCL INJ 50 MG/ML 10 ML VIAL ONE (10:47)
[2020-01-10] MEDS ORDERED: ONDANSETRON INJ 2 MG/ML 2 ML VIAL ONE (11:25)
[2020-01-10] MEDS ORDERED: GLYCOPYRROLATE 0.2 MG/ML VIAL ONE (11:25)
--- NOTE | 2020-01-10 11:43 | Post Operative Brief Note ---
Immediate Post Op Note v1 Date of Surgery January 10, 2020 Pre & Post Diagnosis Operation Date: 01/10/20 09:35 Pre-Op Diagnosis: Left Knee Degenerative Joint Disease Post-Op Diagnosis: Left Knee Degenerative Joint Disease I identified the patient and participated in the time-out.: Yes Procedure Operation Date: 01/10/20 09:35 Actual Procedures p Left Total Knee Arthroplasty(Left) - Jh Smith DO Surgeon Jh Smith DO Head Banquet Waitress Manny Portillo Estimated Blood Loss 50 Findings Consistent with Post-Op Diagnosis Fluids 1500 cc LR Specimens Proximal tibia and distal femur bone fragments Anesthesia Type General Complications none Disposition Disposition: Recovery Room Overlapping Procedure I was present for: the critical portions of procedure. I was immediately available: during the entire case. Back up surgeon: was not required during procedure.
--- NOTE | 2020-01-10 11:46 | Operative Report ---
Post Operative Report Pre & Post Diagnosis Operation Date: 01/10/20 09:35 Pre-Op Diagnosis: Left Knee Degenerative Joint Disease Post-Op Diagnosis: Left Knee Degenerative Joint Disease I identified the patient and participated in the time-out.: Yes Procedure Operation Date: 01/10/20 09:35 Actual Procedures p Left Total Knee Arthroplasty(Left) - Jh Smith DO Surgeon Jh Smith, Air Quality Technician Manny Portillo Estimated Blood Loss 50 Findings Consistent with Post-Op Diagnosis Fluids 1500 cc LR Specimens Proximal tibia and distal femur bone fragments Anesthesia Type General Complications none Disposition Disposition: Recovery Room Indications The patient is a 89-year-old female presents with long history of severe left knee tricompartmental DJD and failed outpatient conservative treatments including NSAIDs, bracing, injections and home walking/exercise program. The patient's symptoms have progressed to the point where it has been difficult to perform normal activities of daily living. I have indicated the patient for a left total knee arthroplasty, the risks and benefits and complications of the procedure include but are not limited to infection bleeding damage to bone, nerves, vessels, surrounding soft tissue, blood clots, loss of function, leg length discrepancy, dislocation, failure of the components, need for additional surgery and . The patient wished to proceed with surgery at this time and informed consent was obtained. Appropriate clearances were obtained. Description of Procedure COMPONENTS USED: Anshul persona knee system: Femur size 8 narrow, Tibia size E, Tibial articulating surface 12 PS, Patella 32 mm Following induction of general anesthesia, a tourniquet was applied to the proximal aspect of the thigh and the patient's left leg was prepped and draped in the usual sterile manner. A timeout was performed, patient identified and site asia confirmed. Appropriate pre-operative IV antibiotics were given. The limb was exsanguinated with an Esmarch bandage and tourniquet was inflated to 300 mmHg. A longitudinal midline incision was made over the anterior knee. Subcutaneous tissue was sharply dissected down to fascia. Electrocautery was used for hemostasis. Next a parapatellar arthrotomy was performed. Patella was everted and the knee was flexed. A Velasquez retractor was used to expose the synovium above on the anterior aspect of the femur and removed down to bone. Next, the anterior fat pad was removed to aid in visualization. The medial face of the tibia was cleared of soft tissue first with a Bovie and a beebe elevator. This tissue was retracted posteriorly using a blunt Hohmann. Next, the extra-medullary tibial cutting guide was placed to the anterior aspect of the tibia. The tibia resection level was set taking 2mm from the defective tibial condyle. Resection depth was once again confirmed with brody wing. The medial and lateral collateral ligament was protected with two Hohmann retractors. The tibia guide was removed and proximal tibial bone fragment removed utilizing straight osteotome, electrocautery and Gerald. Next, the distal femur intramedullary canal was accessed utilizing the step drill. The intramedullary distal femur cutting guide was placed into the canal and pinned into place. The distal femur was cut on the 5 degree setting. Next the cutting guide was removed and the femur was sized. Care was taken to ensure appropriate classification analyst all rotation and 3 degree holes were drilled. A size 8 4-in-1 cutting block was placed on the distal end of the femur and secured into place with two short headed screws. Two bent Hohmann retractors were placed to protect the medial and lateral collateral ligaments. The oscillating saw was used to cut anterior, posterior, anterior chamfer and posterior chamfer. The four and one cutting block was removed and bone fragments excised. Laminar metal miner was placed laterally and the ACL and PCL were removed followed by the medial meniscus and posterior medial osteophytes. Aquamantys was utilized for any posterior medial bleeders and Orthomix injected into the posterior medial capsule. A laminar metal miner was then placed in the medial compartment and the lateral meniscus and posterior osteophytes were removed. Aquamantys was utilized for any posterior lateral bleeders and Orthomix injected into the posterior lateral capsule. Next, drop jillian and spacer block were placed with the leg in flexion and extension to assess alignment and flexion/extension gaps. Next, the proximal tibia was assessed and two bent Hohmans were placed medial and lateral to aid in visualization. The appropriate tibia size and rotation was selected and a size E tibial plate was pinned into place with appropriate rotation. Preparation of the tibia was completed utilizing the matching tibial drill and broach. I then turned my attention back to the distal femur in a trial femoral component was impacted into place. Appropriate femoral width was assessed and selected. Next the femur PS box cut guide was placed and cut made with the reciprocal saw and the PS box provisional placed. A trial size 12 PS tibia articular tray was placed and varus-valgus balance assessed in 0 degrees of extension and 30, 60 and 90 degrees of flexion. A final tibial articular surface size 12 PS was chosen. Assess was gained to the patella and caliper utilized to measure width. The patella reamer was utilized and remaining bone removed with oscillating saw. A size 32 patella button was selected and the patella pegs drilled. Trial patella button was placed and tracking was assessed. The knee was found to be well balanced, well aligned with excellent patella tracking. The trials were removed and final components were obtained and assembled. The knee was irrigated copiously with sterile saline solution mixed with bacitracin. Access to the proximal tibia was once again obtained utilizing to the Hohmans and the proximal tibia and distal femur were dried with lap sponges. The final components were cemented into place and all excess cement was removed. A trial tibial articular surface was placed while cemented hardened. Knee stability was once again assessed and the final component inserted. A Betadine soak was performed. After 3 minutes, the knee was once more irrigated with copious sterile saline solution with bacitracin. The knee was injected with the remaining Orthomix which includes a combination of Ropivicaine 0.5% 150mg, Bupivicaine 0.5%/Epinephrine 1:200,000 30ml, Toradol 30mg, Dexamethasone 4mg, Ketamine 10mg, Clonidine 100mcg and NSS 30ml solution. The capsulotomy was closed with #1 Vicryl followed by subcutaneous closure with 2-0 Vicryl suture and a 3-0 V-lock suture. Skin closure was performed using Prineo dressing followed by Telfa, 4 x 4s and lisa wrap. Tourniquet was deflated at 88 minutes. The patient tolerated the procedure well and was taken to the PACU in stable condition. Due to the complex nature of the procedure, the entire surgery was performed with the operational assistance of Manny Portillo PA-C. The home based assistant, under direct supervision, was involved in the actual performance of all aspects of the surgical procedure including patient positioning, hemostasis, tissue retraction, instrument management and wound closure. I attest to the content of the Intraoperative Record and any orders documented therein. Any exceptions are noted below.
[2020-01-10] MEDS: HYDROmorphone INJ 1 MG/ML SYRINGE IV PRN ×8 (12:47→13:40)
--- NOTE | 2020-01-10 12:53 | XRay Report ---
LEFT KNEE 2 VIEWS History: Left total knee arthroplasty. Degenerative arthritis. Postop. FINDINGS: The patient is status post a left total knee arthroplasty. The hardware is intact. No fract ure or dislocation. IMPRESSION: Left total knee arthroplasty. No evidence for hardware complication. ACT 112: Negative or not required by law. Electronically signed by: Bryant Werner M.D. 01/10/2020 12:52 PM
--- NOTE | 2020-01-10 13:54 | Anesthesiology Progress Note ---
Date of Service January 10, 2020 Anesthesia Post Procedure Vital Signs Vital Signs: Temp Pulse Pulse Resp BP Pulse Ox 01/10/20 13:45 58 L 12 104/46 L 96 01/10/20 13:35 63 12 110/45 L 94 01/10/20 13:25 60 12 114/47 L 97 01/10/20 13:15 62 15 122/53 L 97 01/10/20 13:05 63 14 131/58 L 96 01/10/20 12:55 65 12 133/58 L 96 01/10/20 12:45 63 12 137/56 L 100 01/10/20 12:35 67 15 134/55 L 100 01/10/20 12:25 36.3 C L 81 19 139/58 L 97 01/10/20 10:09 60 18 108/55 L 100 01/10/20 08:25 36.6 C 66 20 114/45 L 95 01/10/20 07:50 36.4 C L 75 20 140/72 96 Pain Intensity Left Knee: Pain Intensity: 8 Transfer of Care Handoff Completed per policy Notes Mental Status: alert / awake / arousable Patient Amnestic to Procedure: Yes Nausea / Vomiting: adequately controlled Pain: adequately controlled Airway Patency, RR, SpO2: stable & adequate BP & HR: stable & adequate Hydration State: stable & adequate Anesthetic Complications: no major complications apparent
[2020-01-10] MEDS ORDERED: MAGNESIUM HYDROXIDE SUSP 30 ML UDC PO PRN (14:31)
[2020-01-10] MEDS ORDERED: HYDROmorphone INJ 0.5 MG/0.5 ML SYR IV PRN (14:31)
[2020-01-10] MEDS ORDERED: bisacodyL 10 MG SUPP PR PRN (14:31)
[2020-01-10] MEDS ORDERED: NALOXONE HCL 0.4 MG/1 ML VIAL/CARP IV PRN (14:31)
[2020-01-10] MEDS ORDERED: METOCLOPRAMIDE HCL INJ 5 MG/ML 2 ML VIAL IV PRN (14:31)
--- NOTE | 2020-01-10 15:27 | Orthopedic Progress Note ---
Date of Service January 10, 2020 Assessment & Plan (1) Degenerative joint disease of left knee: Status post left total knee arthroplasty -Ancef x24 -DVT prophylaxis: SCDs, teds, ASA twice daily -Weight-bear as tolerates left lower extremity -PT/OT -Postoperative x-ray demonstrates a well aligned well fixed prosthesis without fracture or dislocation. -A.m. labs -DC planning Admission and Anticipated Discharge Date Admission Date: January 10, 2020 Subjective Post Operative Progress Note Patient seen in room lying in bed, comfortable, patient still feeling some effects of general anesthesia, complaining of pain and nausea, no acute issues. Review of Systems Review of Systems: All systems reviewed & are unremarkable except as noted in HPI & below Constitutional: as per Subjective / HPI Physical Exam Physical Exam: LLE NVSI +EHL/FHL/TA/GS SILT grossly, +2 DP pulse, compartments soft NT, dressing cdi. Constitutional: WD/WN, vitals as above Results & Data ([facility]) Vital Signs (Past 12 Hours) Vital Signs Temp Pulse Pulse Resp BP Pulse Ox 01/10/20 14:39 36.4 C L 59 L 12 105/63 95 01/10/20 13:55 36.2 C L 63 13 114/49 L 95 01/10/20 13:45 58 L 12 104/46 L 96 01/10/20 13:35 63 12 110/45 L 94 01/10/20 13:25 60 12 114/47 L 97 01/10/20 13:15 62 15 122/53 L 97 01/10/20 13:05 63 14 131/58 L 96 01/10/20 12:55 65 12 133/58 L 96 01/10/20 12:45 63 12 137/56 L 100 01/10/20 12:35 67 15 134/55 L 100 01/10/20 12:25 36.3 C L 81 19 139/58 L 97 01/10/20 10:09 60 18 108/55 L 100 01/10/20 08:25 36.6 C 66 20 114/45 L 95 01/10/20 07:50 36.4 C L 75 20 140/72 96
[2020-01-10] MEDS: SODIUM CHLORIDE 0.9% 1000ML 1,000 ML IV SCH (15:48)
[2020-01-10] MEDS: KETOROLAC TROMETHAMINE 15 MG/ML VIAL IV SCH ×2 (15:49→20:56)
[2020-01-10] MEDS: CEFAZOLIN 2000MG 2,000 MG/15 ML SYR IV SCH (15:49)
[2020-01-10] MEDS: ACETAMINOPHEN 500 MG TAB PO SCH (15:49)
[2020-01-10] MEDS: GABAPENTIN 400 MG CAP PO SCH ×2 (17:28→20:50)
[2020-01-10] MEDS: SENNA 8.6 MG TAB PO SCH (20:50)
[2020-01-10] MEDS: DOCUSATE SODIUM 100 MG CAP PO SCH (20:50)
[2020-01-10] MEDS: LORazepam 1 MG TAB PO SCH (20:54)
[2020-01-11] MEDS: OXYCODONE HCL IR 5 MG TAB (IMMEDIATE RELEASE) PO PRN ×4 (00:08→19:53)
[2020-01-11] MEDS: CEFAZOLIN 2000MG 2,000 MG/15 ML SYR IV SCH (00:09)
[2020-01-11] MEDS: SODIUM CHLORIDE 0.9% 1000ML 1,000 ML IV SCH (00:26)
[2020-01-11] MEDS: KETOROLAC TROMETHAMINE 15 MG/ML VIAL IV SCH ×2 (03:04→08:52)
[2020-01-11] MEDS: ACETAMINOPHEN 500 MG TAB PO SCH ×3 (05:04→20:56)
[2020-01-11 06:29] LABS: Hematocrit (blood only) 36.1 % (37-47); Hemoglobin 11.6 g/dL (12.0-16.0); Mean Corpuscular Hemoglobin 28.2 pg (25-34); Mean Corpuscular Hgb Conc 32.1 g/dL (32-36); Mean Corpuscular Volume 87.6 fL (80-100); Mean Platelet Volume 12.7 fL (7.4-10.4); Platelet Count 148 K/uL (130-400); RDW Coefficient of Variation 13.4 % (11.5-14.5); RDW Standard Deviation 43.1 fL (36.4-46.3); Red Blood Count 4.12 M/uL (4.2-5.4); White Blood Count 10.33 K/uL (4.8-10.8)
[2020-01-11 06:57] LABS: BUN Creatinine Ratio 29.8 (10-20); Calcium 7.9 mg/dl (8.5-10.1); Est GFR (African American) 41.9; Est GFR (Non-African American) 36.2; Potassium 4.7 mmol/L (3.5-5.1)
[2020-01-11] MEDS: MULTIVITAMIN TAB PO SCH (08:46)
[2020-01-11] MEDS: GABAPENTIN 400 MG CAP PO SCH ×4 (08:46→20:54)
[2020-01-11] MEDS: DOCUSATE SODIUM 100 MG CAP PO SCH ×2 (08:47→20:55)
[2020-01-11] MEDS: LISINOPRIL/HCTZ 20/12.5MG 1 TAB TAB PO SCH (08:49)
[2020-01-11] MEDS: ASPIRIN 325 MG ECTAB PO SCH ×2 (08:50→20:55)
--- NOTE | 2020-01-11 10:01 | Orthopedic Progress Note ---
Date of Service January 11, 2020 Assessment & Plan (1) Degenerative joint disease of left knee: Status post left total knee arthroplasty POD#1 -Ancef x24 -DVT prophylaxis: SCDs, teds, ASA twice daily -Weight-bear as tolerates left lower extremity -PT/OT -Postoperative x-ray demonstrates a well aligned well fixed prosthesis without fracture or dislocation. -A.m. labs - as above, hgb 11.6, Cr 1.32, will monitor, encouraged PO intake, will avoid nephrotoxic medication -DC planning - home with Admission and Anticipated Discharge Date Admission Date: January 10, 2020 Subjective Post Operative Progress Note Patient seen sitting up in bed, comfortable, denies complaints, pain well controlled, no acute issues. Denies F/C/N/V/SOB/CP. Review of Systems Review of Systems: All systems reviewed & are unremarkable except as noted in HPI & below Constitutional: as per Subjective / HPI Physical Exam Physical Exam: LLE NVSI +EHL/FHL/TA/GS SILT grossly, +2 DP pulse, compartments soft NT, dressing cdi. Constitutional: WD/WN, vitals as above Results & Data ([place]) Vital Signs (Past 12 Hours) Vital Signs Temp Pulse Pulse Resp BP Pulse Ox 01/11/20 08:51 58 L 96/57 L 01/11/20 07:29 36.5 C 59 L 16 97/53 L 94 01/11/20 03:06 36.3 C L 53 L 16 103/67 94 01/10/20 23:36 36.4 C L 57 L 16 96/57 L 96 Laboratory Results 01/11/20 01/11/20 Range/Units 05:51 05:51 WBC 10.33 (4.8-10.8) K/uL RBC 4.12 L (4.2-5.4) M/uL Hgb 11.6 L (12.0-16.0) g/dL Hct 36.1 L (37-47) % MCV 87.6 (80-100) fL MCH 28.2 (25-34) pg MCHC 32.1 (32-36) g/dL RDW Std Deviation 43.1 (36.4-46.3) fL RDW Coeff of Rosita 13.4 (11.5-14.5) % Plt Count 148 (130-400) K/uL MPV 12.7 H (7.4-10.4) fL Sodium 139 (136-145) mmol/L Potassium 4.7 (3.5-5.1) mmol/L Chloride 107 (98-107) mmol/L Carbon Dioxide 23 (21-32) mmol/L Anion Gap 9.0 (3-11) BUN 39 H (7-18) mg/dl Creatinine 1.32 H (0.6-1.2) mg/dl Est Cr Clr Drug Dosing 32.0 ml/min Est GFR ( Amer) 41.9 Est GFR (Non-Af Amer) 36.2 BUN/Creatinine Ratio 29.8 H (10-20) Glucose 124 H (70-99) mg/dl Calcium 7.9 L (8.5-10.1) mg/dl
[2020-01-11] MEDS: SENNA 8.6 MG TAB PO SCH (20:55)
[2020-01-11] MEDS: CeleBREX 200 MG CAP PO SCH (20:55)
[2020-01-11] MEDS: LORazepam 1 MG TAB PO SCH (20:56)
[2020-01-12] MEDS: OXYCODONE HCL IR 5 MG TAB (IMMEDIATE RELEASE) PO PRN ×4 (00:26→17:44)
[2020-01-12] MEDS: ACETAMINOPHEN 500 MG TAB PO SCH ×2 (06:01→13:07)
[2020-01-12 06:56] LABS: Hematocrit (blood only) 34.2 % (37-47); Hemoglobin 11.2 g/dL (12.0-16.0); Mean Corpuscular Hemoglobin 28.2 pg (25-34); Mean Corpuscular Hgb Conc 32.7 g/dL (32-36); Mean Corpuscular Volume 86.1 fL (80-100); Mean Platelet Volume 12.2 fL (7.4-10.4); Platelet Count 131 K/uL (130-400); RDW Coefficient of Variation 13.5 % (11.5-14.5); RDW Standard Deviation 42.8 fL (36.4-46.3); Red Blood Count 3.97 M/uL (4.2-5.4); White Blood Count 8.05 K/uL (4.8-10.8)
[2020-01-12 07:25] LABS: BUN Creatinine Ratio 32.7 (10-20); Calcium 8.2 mg/dl (8.5-10.1); Creatinine Clr Calc Pharmacy 31.1 ml/min; Est GFR (African American) 40.5; Est GFR (Non-African American) 34.9; Potassium 4.6 mmol/L (3.5-5.1)
[2020-01-12] MEDS: MULTIVITAMIN TAB PO SCH (07:56)
[2020-01-12] MEDS: CeleBREX 200 MG CAP PO SCH (07:56)
[2020-01-12] MEDS: LISINOPRIL/HCTZ 20/12.5MG 1 TAB TAB PO SCH (07:57)
[2020-01-12] MEDS: DOCUSATE SODIUM 100 MG CAP PO SCH (07:57)
[2020-01-12] MEDS: GABAPENTIN 400 MG CAP PO SCH ×3 (07:57→17:45)
--- NOTE | 2020-01-12 08:16 | Orthopedic Progress Note ---
Date of Service January 12, 2020 Assessment & Plan (1) Degenerative joint disease of left knee: Status post left total knee arthroplasty POD#2 -Ancef x24 -DVT prophylaxis: SCDs, teds, ASA twice daily -Weight-bear as tolerates left lower extremity -PT/OT -Postoperative x-ray demonstrates a well aligned well fixed prosthesis without fracture or dislocation. -A.m. labs - as above, hgb 11.2, KASSANDRA - Cr 1.36, will monitor, IV fluids, encouraged PO intake, will avoid nephrotoxic medication, recheck bmp in afternoon -DC planning - home with POD#1 -Ancef x24 -DVT prophylaxis: SCDs, teds, ASA twice daily -Weight-bear as tolerates left lower extremity -PT/OT -Postoperative x-ray demonstrates a well aligned well fixed prosthesis without fracture or dislocation. -A.m. labs - as above, hgb 11.6, Cr 1.32, will monitor, encouraged PO intake, will avoid nephrotoxic medication -DC planning - home with Admission and Anticipated Discharge Date Admission Date: January 10, 2020 Subjective Post Operative Progress Note Patient seen sitting in bed eating breakfast, comfortable, denies complaints, pain well controlled, no acute issues. Denies F/C/N/V/SOB/CP. Review of Systems Review of Systems: All systems reviewed & are unremarkable except as noted in HPI & below Constitutional: as per Subjective / HPI Physical Exam Physical Exam: LLE NVSI +EHL/FHL/TA/GS SILT grossly, +2 DP pulse, compartments soft NT, dressing cdi. Constitutional: WD/WN, vitals as above Results & Data ([facility]) Vital Signs (Past 12 Hours) Vital Signs Temp Pulse Resp BP Pulse Ox 01/12/20 06:35 36.6 C 71 20 111/57 L 95 01/11/20 23:42 36.4 C L 61 16 100/52 L 95 Laboratory Results 01/12/20 01/12/20 Range/Units 06:44 06:44 WBC 8.05 (4.8-10.8) K/uL RBC 3.97 L (4.2-5.4) M/uL Hgb 11.2 L (12.0-16.0) g/dL Hct 34.2 L (37-47) % MCV 86.1 (80-100) fL MCH 28.2 (25-34) pg MCHC 32.7 (32-36) g/dL RDW Std Deviation 42.8 (36.4-46.3) fL RDW Coeff of Rosita 13.5 (11.5-14.5) % Plt Count 131 (130-400) K/uL MPV 12.2 H (7.4-10.4) fL Sodium 135 L (136-145) mmol/L Potassium 4.6 (3.5-5.1) mmol/L Chloride 104 (98-107) mmol/L Carbon Dioxide 26 (21-32) mmol/L Anion Gap 5.0 (3-11) BUN 44 H (7-18) mg/dl Creatinine 1.36 H (0.6-1.2) mg/dl Est Cr Clr Drug Dosing 31.1 ml/min Est GFR ( Amer) 40.5 Est GFR (Non-Af Amer) 34.9 BUN/Creatinine Ratio 32.7 H (10-20) Glucose 86 (70-99) mg/dl Calcium 8.2 L (8.5-10.1) mg/dl
[2020-01-12] MEDS ORDERED: ASPIRIN 81 MG ECTAB PO SCH (09:00)
[2020-01-12] MEDS: POTASSIUM CHLORIDE 10 MEQ in SODIUM CHLORIDE 0.9% 1000ML 1,000 ML IV SCH ×2 (09:51→16:52)
[2020-01-12 15:59] LABS: Calcium 8.6 mg/dl (8.5-10.1); Creatinine Clr Calc Pharmacy 32.8 ml/min; Est GFR (African American) 43.1; Est GFR (Non-African American) 37.2
--- NOTE | 2020-01-12 21:05 | Discharge Summary ---
Date of Service January 12, 2020 Admission HPI Per Admitting Provider The patient is a 89 year old female who presents with complaints of severe left knee pain and DJD. The patient has failed outpatient conservative treatments to this point which included NSAIDS, IA corticosteroid injection and a home exercise/walking program. The patient's pain and limited function have progressed to the point where they severely hinder their activities of daily living and they no longer tolerate exercise programs. They are requesting to proceed with total knee replacement surgery. Principal Diagnosis Left total knee replacement -Left knee DJD Discharge Exam LLE NVSI +EHL/FHL/TA/GS SILT grossly, +2 DP pulse, compartments soft NT, dressing cdi. Constitutional WD/WN, vitals as above Discharge Data Allergies Allergy/AdvReac Type Severity Reaction Status Date / Time No Known Allergies Allergy Verified 01/10/20 07:46 Consultations 01/10/20 14:31 Consult Case Management - Discharge Planning Routine Procedures Performed Operation Date: 01/10/20 09:35 Actual Procedures p Left Total Knee Arthroplasty(Left) - Jh Smith DO Ordered Studies 01/10/20 05:00 US - OR guided needle placemen Routine Hospital Course (1) Degenerative joint disease of left knee: The patient is a 89 -year-old female who presents with long standing history of severe left knee DJD and failed outpatient conservative treatments. The patient's symptoms have progressed to the point where it has been difficult to perform even normal activities of daily living. I indicated the patient for a left total knee arthroplasty, the risks, benefits and complications of the procedure include but not limited to infection, bleeding, damage to bone, nerves, vessels, surrounding soft tissue, may develop blood clots, loss of function, leg length discrepancy, dislocation, failure of the components, loosening of the components, the need for additional surgery and . The patient wished to proceed with surgery at this time and informed consent was obtained. Hospital Course: On 01/10/20 the patient was taken to the operating room, adequate anesthesia administered and underwent a left total knee arthroplasty. The patient tolerated the procedure well and was taken to the PACU in stable condition. Post-operatively the patient was started on a DVT ppx medication and given appropriate IV antibiotics. Consults were placed to physical therapy, occupational therapy and case management. On POD#1, the patient did well overnight and their pain was well controlled. Labs were drawn and the Hgb was 11.2, Cr 1.32, for KASSANDRA encouraged PO intake, avoided nephrotoxic medication. The patient progressed well with PT. Dressings were changed at this time and the incision was clean, dry and intact. On POD#2, the patient continued to progress with PT. Labs were drawn, Hgb 11.2, Cr increased slightly to 1.36. 1L of IV fluids given, afternoon recheck Cr 1.29. Patient given script for repeat BMP in 3 days. The patients hospital stay was relatively uneventful and they were deemed stable by the orthopedic team and consultants to be discharged home with outpatient PT per patients request opposed to home health on 01/12/20. Discharge Instructions: Upon discharge the patient may weight bear as tolerates through their operative extremity. They were instructed to keep the incision clean and dry at all times. The patient may shower but should not submerge the incision, avoid bathing, pools and hot tubes. The patient was given a script for pain medication and should take as instructed. The patient was given a script for DVT ppx 81mg ASA BID and should take as directed. The patient was instructed to not drive or travel for long distances until cleared to do so. If the patient develops any symptoms of fevers, chills, nausea, vomiting, increased redness, swelling, pain or drainage from the surgical site, they should notify the office and/or proceed to the nearest emergency room. The patient should follow up in 10-14 days after surgery for their routine post-operative follow-up appointment and should call the office to confirm the date and time. Status post left total knee arthroplasty POD#2 -Ancef x24 -DVT prophylaxis: SCDs, teds, ASA twice daily -Weight-bear as tolerates left lower extremity -PT/OT -Postoperative x-ray demonstrates a well aligned well fixed prosthesis without fracture or dislocation. -A.m. labs - as above, hgb 11.2, KASSANDRA - Cr 1.36, will monitor, IV fluids, encouraged PO intake, will avoid nephrotoxic medication, recheck bmp in afternoon -DC planning - home with POD#1 -Ancef x24 -DVT prophylaxis: SCDs, teds, ASA twice daily -Weight-bear as tolerates left lower extremity -PT/OT -Postoperative x-ray demonstrates a well aligned well fixed prosthesis without fracture or dislocation. -A.m. labs - as above, hgb 11.6, Cr 1.32, will monitor, encouraged PO intake, will avoid nephrotoxic medication -DC planning - home with HH Total Time Total Time Spent Total Time Spent (In Minutes): 60 Discharge Plan Discharge Items Patient Disposition: Home - Home Health Services Reason For Visit: Left Knee Degenerative Joint Disease Discharge Diagnosis: Left total knee replacement -Left knee DJD Condition on Discharge: Good Activity: Per Instructions section Lifting: Wait until after follow-up appointment Bathing: Keep incision dry Sexual Activity: Wait until after follow-up appointment Exercise/Sports: Wait until after follow-up appointment Driving/Machine Use: No driving. Weightbearing: Full weightbearing Non-emergency contact: Primary Care Provider and Surgeon Call non-emergency contact if: you have any medication questions, your symptoms worsen, your pain is not controlled, your pain is worsening, your pain is unusual for you, your pain is concerning for you, you have a fever, your temperature is above 101, your wound has increased redness, your wound has increased drainage and your wound pain has increased Follow-up/Referrals: Florinda Zamora D.O. [Primary Care Provider] - (Office was closed at the time of discharge to schedule a follow up appt. internal medicine nurse practitioner from [facility] will phone you to inform you of your follow up appt with your PCP.) Diet: Regular Ambulatory Orders: Basic Metabolic Panel (Routine) Timeframe: 3 Days Location: Determined by Patient Ordered By: Jh Delgado Attending Provider Instructions: ACTIVITY RECOMMENDATIONS: SELF CARE INSTRUCTIONS AFTER TOTAL KNEE REPLACEMENT A. You may need to continue a physical therapy program after discharge from the hospital. There are several options available to you. Your doctor will assist you in selecting the best one for you. 1. An out-patient facility 2 to 3 times a week for therapy or home therapy. 2. Continue working on all exercises taught to you in the hospital. Your goals should be to increase bending of your knee to 90 degrees and beyond and to fully straighten your knee. B. You may progress at your own pace from walking with a walker or crutches to a cane; then to no assistive devices. C. Make walking a part of your daily routine. Be up as much as comfortable with rest periods throughout the day. Rest with leg elevation is very important. Use the ice wrap frequently for the first 3-4 weeks. D. There are no restrictions on activities. You may ride in a car, shop, participate in dental hygienist and all social activities. E. Wear the long elastic stockings (KALEB hose) 20 hours a day for 2 weeks after surgery. They can be removed several times a day for laundering and for a bath. F. You may shower, no tub baths until cleared by your doctor. SPECIAL CARE INSTRUCTIONS: VERY IMPORTANT TO READ AND REVIEW A. There are a few signs you need to watch for after you are home. Call [facility] if you notice any of the followin. Increased severe knee pain. Some pain is expected especially when you exercise. 2. Increased swelling in your leg or knee; pain or swelling of the calf muscle in either lower leg. 3. Any fluid drainage from the incision. 4. Shortness of breath or chest pain. B. Please call [facility] at if you have any concerns or questions about your operation or recovery. The doctor or his nurse will return your call promptly. C. You must take antibiotics before dental work, bladder, bowel or other surgery. Your doctor will provide you with a permanent care to carry describing this precaution. IMPORTANT: * REMEMBER TO TAKE ASPIRIN, 81 MG, TWICE DAILY FOR 4 WEEKS UNLESS OTHERWISE DIRECTED. THIS IS YOUR BLOOD THINNER. * HIGH RISK PATIENTS MAY BE PRESCRIBED A STRONGER BLOOD THINNER. THIS WILL BE PROVIDED AT DISCHARGE. * CALL IF INCREASED PAIN, REDNESS, DRAINAGE OR FEVER GREATER THAT 101. * WEAR KALEB HOSE 20 HOURS PER DAY FOR 2 WEEKS. *DERMABOND Prineo- This is a mesh tape dressing that is covered with glue. It should remain in place until the incision is properly healed, usually 10-14 days. This dressing is designed to naturally slough off. You may trim the excess mesh tape as it peels off. Incision may be briefly wet in a shower. Dry immediately by blotting with a clean, dry towel. Do not bath or swim until instructed by your doctor. Do not scratch, rub, or pick at the dressing. Do not apply any topical ointments or lotions until dressing is completely removed and/or instructed by your doctor. There may be a small piece of suture material at one end of your incision. Do not pull or trim this. If it is bothersome or catching on clothing, you may cover it with a band-aid. FOLLOW UP VISIT: If appointment is not already scheduled: Please call [facility] to make a follow-up appointment for 2 weeks after your surgery at . Please follow up with PCP within 1 week results of repeat BMP lab. Pending Studies at Discharge: No Stand-Alone Forms: My [facility] [employer], Smoking Cessation Medications and DC Order Prescriptions: New aspirin 81 mg Tablet,Delayed Release (Dr/Ec) 81 mg PO BID Qty: 56 RF: 0 acetaminophen 500 mg Tablet 1,000 mg PO Q8 PRN (Reason: fever or pain) Qty: 90 RF: 0 oxycodone 5 mg Tablet 5 mg PO Q6H MDD 4 PRN (Reason: pain) Qty: 30 RF: 0 sennosides [Senokot] 8.6 mg Tablet 17.2 mg PO HS PRN (Reason: constipation) Qty: 28 RF: 0 docusate sodium 100 mg Capsule 100 mg PO BID PRN (Reason: constipation) Qty: 28 RF: 0 Continued lisinopril-hydrochlorothiazide 20-12.5 mg Tablet 1 tab PO QAM RF: 0 lorazepam 1 mg Tablet 1 mg PO QPM RF: 0 Medical Marijuana 1 dose sublingual UD PRN (Reason: Pain) RF: 0 multivitamin Tablet 1 tab PO QAM RF: 0 Cbd Oil 1 dose topical DAILY RF: 0 gabapentin 400 mg Capsule 400 mg PO QID RF: 0 Discontinued meloxicam 7.5 mg Tablet 7.5 mg PO BID PRN (Reason: Pain) RF: 0 Discharge Orders: Discharge Order (Routine); Ordered 01/12/20 Ordered By: Jh Smith Admission Data Admit Date/Time: 01/10/20 12:27 Attending Provider: Jh Smith Admit Provider: Jh Smith Primary Care Provider: Florinda Zamora Other Providers: [facility],Home Health Other Interventions: Discharge Summary Assessment (RN) Last Done: 01/12/20 16:21
== END 2020-01-12 18:40 | disposition home health service (06) ==
LOC: ASU 07:06 → 3E 07:06